=== PATIENT | female | born 1960 | race Two or more races ===

== ENCOUNTER 2018-11-18 07:12 | Outpatient (CLI) | payer OTHER | END 2018-11-18 13:05 | disposition home or self-care (01) | LOC: NUCLEAR 07:12 | DX: I20.9 Angina pectoris, unspecified (principal) | CPT/HCPCS: 78452; 93017; A9500; J0153 ==

== ENCOUNTER 2025-04-19 12:30 | Day surgery (SDC) | payer OTHER ==
[2025-04-11 07:56] VITALS: BP 131/70
[2025-04-11 08:14] LABS: BASO % 0.5 % (0.1-1.2); EOS # 0.31 (0.04-0.54); EOS % 2.9 % (0.7-7.0); LYMPH # 1.55 (1.18-3.74); LYMPH % 14.7 % (19.3-53.1); MEAN PLATELET VOLUME 10.10 fl (9.4-12.4); MONO # 0.75 (0.24-0.82); MONO % 7.1 % (4.7-12.5); NEUT # 7.89 (1.56-6.13); NEUT % 74.5 % (34.0-71.1); RED CELL DISTRIBUTION WIDTH 14.3 % (11.6-14.4)
[2025-04-11 08:16] LABS: URINE APPEARANCE Cloudy; URINE BILIRRUBIN Negative (NEGATIVE); URINE BLOOD Trace; URINE COLOR Yellow; URINE GLUCOSE Negative (NEGATIVE); URINE KETONE Negative (NEGATIVE); URINE LEUKOCYTE Large; URINE NITRATE Positive; URINE PROTEIN Negative (NEGATIVE); URINE UROBILINOGEN 0.2 E.U./dl
[2025-04-11 08:20] LABS: URINE EPITHELIAL CELLS 8.1 uL (0.0-38.8); URINE RBC 6.0 uL (0.0-20.8); URINE WBC 2346.0 uL (0.0-23.2)
[2025-04-11 08:32] LABS: INR 0.99
[2025-04-11 08:39] LABS: URINE BACTERIA > 9821.5 uL (0.0-1933); URINE CAST 0.14 uL (0.0-1.40)
[2025-04-11 09:09] LABS: BUN CREA RATIO 13.0 (7.0-25.0); CREATININE SERUM 0.63 mg/dL (0.55-1.02); GFR 95.14; GLUCOSE FASTING 103.0 mg/dL (65-100); OSMOLALITY SERUM 282.0 MOSM/KG (275-295)
[~2025-04-19] VITALS: Ht 172.7 cm; Wt 114.3 kg
[~2025-04-19 12:30] MED LIST: CARVEDILOL3.125 MG; DICLEGIS DR 101 EACH; GRALISE600 MG; HYDRODIURIL12.5 MG PO; LANTUS SOL100 UNIT/1; OZEMPIC0.25 MG/02
[2025-04-19] MEDS ORDERED: LIDOCAINE HCL 1%/EPINEPHRINE 20ML VIAL IJ ONE (13:46)
[2025-04-19] MEDS ORDERED: BUPIVACAINE HCL/MPF 0.5% 30ML VIAL ONE (13:46)
[2025-04-19] MEDS ORDERED: CEFAZOLIN SODIUM 1,000 MG VIAL IV ONE (15:45)
[2025-04-19] MEDS ORDERED: CEPHALEXIN500 MG PO (17:40)
[2025-04-19] MEDS ORDERED: TYLENOL ARTHRI650 MG PO (17:40)
== END 2025-04-19 19:05 | disposition home or self-care (01) ==
LOC: CIR.AMB 12:30
PROVIDERS: ATTEND Surgery
DX: D21.0 Benign neoplasm of connective and other soft tissue of head, face and neck (principal); D49.2 Neoplasm of unspecified behavior of bone, soft tissue, and skin; Z88.2 Allergy status to sulfonamides; Z91.013 Allergy to seafood